=== PATIENT | female | born 2000 | race Caucasian/White ===

== ENCOUNTER 2024-11-03 14:32 | Emergency (ER) | payer OTHER, SELFPAY ==
[2024-11-03 14:37] VITALS: BP 117/99; PULSE 110; TEMP 37.1; O2SAT 100; BMI 22.3
--- NOTE | 2024-11-03 15:34 | XR_ITS ---
The [address] [address] Patient Name: JAROCHO SHOOK MRN: [id number] date: 2000 Sex: F Assigned Patient Location: ED.MAIN Current Patient Location: Accession/Order Number: [id number] Exam Date: 11/03/2024 15:45 Report Date: 11/03/2024 17:52 At the request of: NINA SWANSON Procedure: XR lumbar spine 2-3V Exam: Radiographs: XR lumbar spine 2-3V Reason for exam: low back pain Comparison: None XR/XR lumbar spine 2-3V IMPRESSION: Unremarkable lumbar spine radiographs. Electronically authenticated by: NICOLE DUNBAR Date: 11/03/2024 17:52
[2024-11-03 15:37] LABS: Bilirubin Urine NEGATIVE (NEGATIVE); Blood Urine MODERATE (NEGATIVE); Clarity Urine CLEAR (CLEAR); Color Urine LT. YELLOW (YELLOW); Glucose Urine UA NEGATIVE (NEGATIVE); Ketones Urine NEGATIVE (NEGATIVE); Leukocyte Esterase Urine TRACE (NEGATIVE); Nitrite Urine NEGATIVE (NEGATIVE); Protein Urine NEGATIVE (NEG/TRACE); Specific Gravity Urine 1.015 (1.005-1.025); Urobilinogen Urine 0.2 EU/dL (0.2-1.0); pH Urine 7.5 (5.0-9.0)
--- NOTE | 2024-11-03 15:37 | ED_ITS ---
Documented by User: SHANTA Mahajan 11/03/24 16:32 HPI HPI - Back Pain/Injury General Chief Complaint: Back Pain/Injury Stated Complaint: BACK PAIN Time Seen by Provider: 11/03/24 15:18 Source: patient Mode of arrival: walk-in History of Present Illness HPI Narrative: Patient is a 24-year-old female presents to the ER for evaluation of acute on chronic low back pain. Patient states she deals with chronic low back pain for several years believes she had a injury moving a patient sometime ago. Patient states last night she was in bed and was twisting her hips and noticed sudden onset increased pain in the lower back patient describes bolts of discomfort going into her thighs and upper back symptoms have since subsided and are localized to the lower back region occasional pain into the anterior thighs. She denies any current bowel or bladder numbness or saddle paresthesias she denies any bowel or bladder incontinence. Patient states she can sit with her legs hyperflexed at the hip joint and can get numbness in the vaginal area if she sits like this for an extended period of time. She denies any perirectal numbness or tingling. Patient patient states she has also had episodic numbness in the left shoulder blade region with no correlation. She denies any radicular symptoms down her legs at baseline but notes chronic discomfort in the lower back she has pain with flexion reaching her knees and extension. Currently moderate but still able to ambulate without much difficulty. 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 MD elicited complaint: Reports back pain; Denies back injury or fall Pertinent past history: Reports prior back pain Onset (ago): day(s) Timing: Reports improved Severity: moderate Similar Symptoms Previously: Yes Quality: Reports sharp, dull, aching and spasming; Denies burning Location: Reports lumbar spine Radiation: Reports none (denies radicular symptoms) Context: turning/twisting Treatments prior to arrival: NSAIDS (motrin at noon) Related Data Previous Rx's ?Medication ?Instructions ?Recorded cyclobenzaprine 10 mg tablet 10 mg PO BEDTIME PRN muscle spasm 11/03/24 7 days #7 tabs prednisone 20 mg tablet 40 mg (2 x 20 mg) PO DAILY 5 days 11/03/24 #10 tabs Allergies Allergy/AdvReac Type Severity Reaction Status Date / Time No Known Drug Allergies Allergy Verified 11/03/24 14:41 Opioid HPI Opioid Management Most Recent Opioid Data: Last Pain Scale 6 11/03/24 15:59 11/03/24 Last MAR Pain Assessment 11/03/24 15:59 Review of Systems ROS Constitutional Denies: fever or chills Eyes Denies: change in vision Ears, nose, mouth, and throat Denies: throat pain Cardiovascular Denies: chest pain or palpitations Respiratory Denies: shortness of breath or cough Gastrointestinal Denies: abdominal pain Genitourinary Denies: painful urination Musculoskeletal Reports: back pain; Denies: neck pain, extremity pain or extremity swelling Integumentary/Breast Denies: rash Neurological Denies: headache or numbness in extremities Psychiatric Denies: anxiety or mood swings Endocrine Denies: excessive urination Hematologic/Lymphatic Denies: easy bruising PFSH PFSH Social History Little interest or pleasure in doing things: not at all Feeling down, depressed, or hopeless: not at all Exam Narrative Exam Narrative: Vital Signs reviewed and nurse's notes reviewed. The patient is not hypoxic. General: Alert, no acute distress, patient resting comfortably Skin: warm, intact, no pallor noted, no rash Head: Normocephalic, atraumatic Eye: Normal conjunctiva, EOMI Respiratory: No acute distress Abdomen: Normal bowel sounds, soft, nontender, no masses detected. No rebound, guarding, or rigidity noted. No midline pulsatile mass. Back: inspection of the back shows no obvious deformity, no swelling, no ecchymosis, contusion, abrasion, swelling, erythema, fluctuance or induration. No step offs or crepitus noted. No CVA tenderness noted bilaterally. Tenderness not palpable to the paravertebral lumbar region but this is the location of her pain. No midline bony tenderness. Straight leg raise on left is negative. Back pain is present with tight hamstrings noted Straight leg raise on right is negative. Musculoskeletal: No deformity noted to bilateral lower extremities. no cyanosis or mottling noted. normal pulses at DP and PT 2+ bilaterally and symmetrically. Normal 5/5 strength at ankles with dorsiflexion and plantar flexion. Patient is able to ambulate. Normal sensation noted to the bilateral lower extremities. Neurological: alert and oriented x4, normal sensory and motor observed. DTR 2+ at patellar and achilles bilaterally. Patient denies any paresthesias at this time. Psychiatric: Cooperative Constitutional Vital Signs, click to edit/add: Last Vital Signs Temp 98.8 F 11/03/24 14:37 Pulse 110 H 11/03/24 14:37 Resp 18 11/03/24 14:37 BP 117/99 H 11/03/24 14:37 Pulse Ox 100 11/03/24 14:37 O2 Del Method Room Air 11/03/24 14:37 Course Vital Signs Vital signs: Vital Signs Temperature 98.8 F 11/03/24 14:37 Pulse Rate 110 H 11/03/24 14:37 Respiratory Rate 18 11/03/24 14:37 Blood Pressure 117/99 H 11/03/24 14:37 Pulse Oximetry 100 11/03/24 14:37 Oxygen Delivery Method Room Air 11/03/24 14:37 Temperature 98.8 F 11/03/24 14:37 Pulse Rate 110 H 11/03/24 14:37 Respiratory Rate 18 11/03/24 14:37 Blood Pressure 117/99 H 11/03/24 14:37 Pulse Oximetry 100 11/03/24 14:37 Oxygen Delivery Method Room Air 11/03/24 14:37 MDM - Back Pain/Injury MDM Narrative Medical decision making narrative: Patient presents with acute on chronic low back pain. She has not had x-rays in the past we discussed the need for follow-up to PCP and referral to physical therapy given the chronicity of her symptoms. We will place her on a prednisone taper and muscle relaxant. She is to be off work today and likely tomorrow pending improvement. We discussed gentle stretching. Patient will return to the ER with any red flag symptoms such as numbness or tingling in the bowel or bladder area saddle paraesthesias bowel or bladder incontinence. Patient reevaluated she is without any current urinary symptoms urine sample appears contaminated will await culture. Before treatment with antibiotics. Patient be placed on a steroid and muscle relaxant she is to use the muscle relaxant only at bedtime. Note for work also provided she is not to drive with the muscle relaxant. The patient was noted to be grossly neurologically intact. The patient was treated with adequate analgesia here in the emergency department. The patient vital signs were reviewed in the patient had no neurologic deficit noted. Due to the nature of the patient's history of present illness xrays were discussed. The patient is to followup in the next 3-5 days for repeat evaluation or to return to the emergency department if symptoms worsen or new symptoms develop. The patient will be discharged home with adequate analgesia. The patient has no other questions or concerns at this time. Lab Data Labs: Lab Results 11/03/24 Range/Units 15:25 Urine Color Lt. yellow (YELLOW) Urine Clarity Clear (CLEAR) Urine pH 7.5 (5.0-9.0) Ur Specific [employer] 1.015 (1.005-1.025) Urine Protein Negative (NEG/TRACE) mg/dL Urine Glucose (UA) Negative (NEGATIVE) mg/dL Urine Ketones Negative (NEGATIVE) mg/dL Urine Occult Blood Moderate A (NEGATIVE) Urine Nitrite Negative (NEGATIVE) Urine Bilirubin Negative (NEGATIVE) Urine Urobilinogen 0.2 (0.2-1.0) EU/dL Ur Leukocyte Esterase Trace A (NEGATIVE) Urine RBC 0-2 (0-2) #/HPF Urine WBC 2-5 A (NONE SEEN) #/HPF Ur Squamous Epith Cells Many A (NONE/RARE) #/LPF Urine Crystals None seen (None Seen) #/HPF Urine Bacteria Moderate A (NONE SEEN) #/HPF Urine Casts None seen (NONE SEEN) #/LPF Urine Mucus Small A (NONE SEEN) Ur Culture Indicated? Yes Urine HCG, Qual Negative (NEGATIVE) Discharge Plan Discharge Chief Complaint: Back Pain/Injury Clinical Impression: Low back pain Patient Disposition: Home, Self-Care Time of Disposition Decision: 16:29 Condition: Good Prescriptions / Home Meds: New prednisone 20 mg tablet 40 mg PO DAILY 5 Days Qty: 10 0RF cyclobenzaprine 10 mg tablet 10 mg PO BEDTIME PRN (Reason: muscle spasm) 7 Days Qty: 7 0RF Print Language: Mohawk Instructions: Acute Low Back Pain (ED) Additional Instructions: Contact your PCP office on Tuesday to discuss physical therapy referral recommend Tylenol for pain with steroid do not take Motrin or other NSAIDs. Referrals: IDA GERMAN [Primary Care Provider] - As soon as possible Discharge Date/Time: 11/03/24 16:34 Documented by User: Dank Rojas MD 11/03/24 19:35 HPI HPI - Back Pain/Injury General Chief Complaint: Back Pain/Injury Stated Complaint: BACK PAIN Time Seen by Provider: 11/03/24 15:18 Related Data Previous Rx's ?Medication ?Instructions ?Recorded cyclobenzaprine 10 mg tablet 10 mg PO BEDTIME PRN muscle spasm 11/03/24 7 days #7 tabs prednisone 20 mg tablet 40 mg (2 x 20 mg) PO DAILY 5 days 11/03/24 #10 tabs Allergies Allergy/AdvReac Type Severity Reaction Status Date / Time No Known Drug Allergies Allergy Verified 11/03/24 14:41 Opioid HPI Opioid Management Most Recent Opioid Data: Last Pain Scale 6 11/03/24 15:59 11/03/24 Last MAR Pain Assessment 11/03/24 15:59 PFSH PFSH Social History Little interest or pleasure in doing things: not at all Feeling down, depressed, or hopeless: not at all Exam Constitutional Vital Signs, click to edit/add: Last Vital Signs Temp 98.8 F 11/03/24 14:37 Pulse 110 H 11/03/24 14:37 Resp 18 11/03/24 14:37 BP 117/99 H 11/03/24 14:37 Pulse Ox 100 11/03/24 14:37 O2 Del Method Room Air 11/03/24 14:37 Course Vital Signs Vital signs: Vital Signs Temperature 98.8 F 11/03/24 14:37 Pulse Rate 110 H 11/03/24 14:37 Respiratory Rate 18 11/03/24 14:37 Blood Pressure 117/99 H 11/03/24 14:37 Pulse Oximetry 100 11/03/24 14:37 Oxygen Delivery Method Room Air 11/03/24 14:37 Temperature 98.8 F 11/03/24 14:37 Pulse Rate 110 H 11/03/24 14:37 Respiratory Rate 18 11/03/24 14:37 Blood Pressure 117/99 H 11/03/24 14:37 Pulse Oximetry 100 11/03/24 14:37 Oxygen Delivery Method Room Air 11/03/24 14:37 MDM - Back Pain/Injury MDM Narrative Medical decision making narrative: Patient presents with acute on chronic low back pain. She has not had x-rays in the past we discussed the need for follow-up to PCP and referral to physical therapy given the chronicity of her symptoms. We will place her on a prednisone taper and muscle relaxant. She is to be off work today and likely tomorrow pending improvement. We discussed gentle stretching. Patient will return to the ER with any red flag symptoms such as numbness or tingling in the bowel or bladder area saddle paraesthesias bowel or bladder incontinence. Patient reevaluated she is without any current urinary symptoms urine sample appears contaminated will await culture. Before treatment with antibiotics. Patient be placed on a steroid and muscle relaxant she is to use the muscle relaxant only at bedtime. Note for work also provided she is not to drive with the muscle relaxant. The patient was noted to be grossly neurologically intact. The patient was treated with adequate analgesia here in the emergency department. The patient vital signs were reviewed in the patient had no neurologic deficit noted. Due to the nature of the patient's history of present illness xrays were discussed. The patient is to followup in the next 3-5 days for repeat evaluation or to return to the emergency department if symptoms worsen or new symptoms develop. The patient will be discharged home with adequate analgesia. The patient has no other questions or concerns at this time. I, Dr Rojas, have reviewed the above progress note and course of action in the ER; agree with the above. I have personally gone over history and physical, and discussed disposition and treatment plan with the patient. Lab Data Labs: Lab Results 11/03/24 Range/Units 15:25 Urine Color Lt. yellow (YELLOW) Urine Clarity Clear (CLEAR) Urine pH 7.5 (5.0-9.0) Ur Specific [employer] 1.015 (1.005-1.025) Urine Protein Negative (NEG/TRACE) mg/dL Urine Glucose (UA) Negative (NEGATIVE) mg/dL Urine Ketones Negative (NEGATIVE) mg/dL Urine Occult Blood Moderate A (NEGATIVE) Urine Nitrite Negative (NEGATIVE) Urine Bilirubin Negative (NEGATIVE) Urine Urobilinogen 0.2 (0.2-1.0) EU/dL Ur Leukocyte Esterase Trace A (NEGATIVE) Urine RBC 0-2 (0-2) #/HPF Urine WBC 2-5 A (NONE SEEN) #/HPF Ur Squamous Epith Cells Many A (NONE/RARE) #/LPF Urine Crystals None seen (None Seen) #/HPF Urine Bacteria Moderate A (NONE SEEN) #/HPF Urine Casts None seen (NONE SEEN) #/LPF Urine Mucus Small A (NONE SEEN) Ur Culture Indicated? Yes Urine HCG, Qual Negative (NEGATIVE) Discharge Plan Discharge Chief Complaint: Back Pain/Injury Clinical Impression: Low back pain Patient Disposition: Home, Self-Care Time of Disposition Decision: 16:29 Condition: Good Prescriptions / Home Meds: New prednisone 20 mg tablet 40 mg PO DAILY 5 Days Qty: 10 0RF cyclobenzaprine 10 mg tablet 10 mg PO BEDTIME PRN (Reason: muscle spasm) 7 Days Qty: 7 0RF Print Language: Mohawk Instructions: Acute Low Back Pain (ED) Additional Instructions: Contact your PCP office on Tuesday to discuss physical therapy referral recommend Tylenol for pain with steroid do not take Motrin or other NSAIDs. Referrals: IDA GERMAN [Primary Care Provider] - As soon as possible Discharge Date/Time: 11/03/24 16:34
[2024-11-03 15:41] LABS: HCG Qualitative Urine* NEGATIVE (NEGATIVE); Internal Control Within Normal Limits; Urine Microscopic Indicated YES
[2024-11-03 15:44] LABS: Bacteria Urine MODERATE #/HPF (NONE SEEN); Cast Seen? NONE SEEN #/LPF (NONE SEEN); Crystals Seen? None Seen #/HPF (None Seen); Mucus Urine SMALL (NONE SEEN); RBC Urine 0-2 #/HPF (0-2); Squamous Epithelial Cell Urine MANY #/LPF (NONE/RARE); Urine Culture Indicated YES
[2024-11-03] MEDS: ACETAMINOPHEN 500 MG TABLET 1000 MG PO (15:57)
[2024-11-03] MEDS: DIAZEPAM 2 MG TABLET PO (15:58)
[2024-11-03] MEDS: PREDNISONE 20 MG TABLET 40 MG PO (15:58)
[2024-11-03] MEDS: KETOROLAC TROMETHAMINE 60 MG/2 ML VIAL IM (15:59)
[2024-11-06 09:39] LABS: BOX Test Reference Lab FIRELANDS
== END 2024-11-03 16:34 | disposition home or self-care (01) ==
PROVIDERS: Personal Emergency Response Attendant; Emergency Provider Emergency Medicine; Family Provider Family Medicine; PCP Family Medicine
DX: M54.50 Low back pain, unspecified (principal); G89.29 Other chronic pain
CPT/HCPCS: 36415; 72100; 81001; 84703; 87086; 96372; 99285; J1885; J7512

== ENCOUNTER 2025-05-09 12:30 | Emergency (ER) | payer OTHER, SELFPAY ==
[2025-05-09] VITALS (9 sets, daily range): BP systolic 107–128; BP diastolic 80–89; PULSE 86–135; TEMP 37; O2SAT 99–100; BMI 23.7
--- OUTSIDE RECORDS SUMMARY | 2025-05-09 12:38 | XMS_ITS | Encounter Summary ---
Author Organization [facility] Address [address] [place] [address] Care Team Providers Care Recycling Coordinator Name Role Phone Fatimah Aguilar MD Primary Care Provider [phone] Encounter Details Date Type Department Care Team (Late st Contact Info) Description 11/06/2024 Orders Only [facility] [address] [place] [address] Unallocated, [facility] Provider, [address] [place] [address] Social History Tobacco Use Types Packs/Day Years Used Date Smoking Tobacco: Never Smokeless Tobacco: Never Alcohol Use Standard Drinks/Week Comments Not Currently 0 (1 standard drink = 0.6 oz pur e alcohol) Comments Unknown Sex and Gender Information Value Date Recorded Sex Assigned at Not on file Legal Sex Female 7:13 PM EDT Gender Identity Not on file Sexual Orientation Not on file documented as of this encounter Plan of Treatment Not on file documented as of this encounter Procedures Procedure Name Priority Date/Time Associated Diagnosis Comments URINE CULTURE Routine 11/06/2024 10:39 AM EST URINE CULTURE Routine 11/06/2024 10:13 AM EST XR LUMBAR SPINE 2-3 VIEWS Routine 11/06/2024 9:44 AM EST documented in this encounter Results * URINE CULTURE (11/06/2024 10:39 AM EST) us [facility] Provider Unallocated LAB BLOOD ORDERABLE S Final Result * URINE CULTURE (11/06/2024 10:13 AM EST) us [facility] Provider Unallocated MD LAB BLOOD ORDERABLE S Final Result * XR lumbar spine 2 or 3 views (11/06/2024 9:44 AM EST) Anatomical Region Laterality Modality Spine, L-spine Radiographic [place] ging us [facility] Provider Unallocated IMG XR PROCEDURES F inal Result documented in this encounter Visit Diagnoses Not on filedocumented in this encounter Care Teams Recycling Coordinator Relationship Specialty Start Date End Date Fatimah Aguilar MD [address] [place] [address] PCP - General Family Medicine 03/15/23 documented as of this encounter
--- OUTSIDE RECORDS SUMMARY | 2025-05-09 12:38 | XMS_ITS | Clinical Summary ---
Author Organization [facility] Address [id number] [address] [place] [address] Care Team Providers Care Javascript Front End Developer Name Role Phone Fatimah Aguilar MD Primary Care Provider [phone] Allergies No known active allergies Medications etonogestreL (NEXPLANON) 68 mg implant See Admin Instructions . Active PARoxetine (PAXIL) 20 mg tablet 1 tablet in the morning Active Social History Tobacco Use Types Packs/Day Years Used Date Smoking Tobacco: Never Assessed Comments No Sex and Gender Information Value Date Recorded Sex Assigned at Not on file Legal Sex Female 7:33 PM EDT Gender Identity Not on file Sexual Orientation Not on file Last Filed Vital Signs Vital Sign Reading Time Taken Comments Blood Pressure 114/78 03/12/2022 10:00 PM EDT Pulse 72 03/12/2022 10:00 PM EDT Temperature 36.6 C (97.8 F) 03/12/2022 7:50 PM EDT Respiratory Rate 17 03/12/2022 10:0 0 PM EDT Oxygen Saturation 97% 03/12/2022 10: 00 PM EDT Inhaled Oxygen Concentration - - Weight 56.2 kg (123 lb 14.4 oz) 03/12/2022 7:50 PM EDT Height - - Body Mass Index - - Plan of Treatment Health Maintenance Due Date Last Done Comments Depression Screening 2013 Tobacco Screening 2013 Adult BMI Screening 2019 Pap Smear 2022 DTaP,Tdap and Td Vaccines (7 - Td or Tdap) 05/31/2024 05/31/2014, 06/08/2007, 09/26/2002, Additional history exists Influenza Vaccine 07/08/2025 09/12/2018 Medical Devices Not on file Insurance [employer] Care Teams Javascript Front End Developer Relationship Specialty Start Date End Date Fatimah Aguilar MD [facility] [place] [address] PCP - General Family Medicine 03/12/22
--- OUTSIDE RECORDS SUMMARY | 2025-05-09 12:38 | XMS_ITS | Encounter Summary ---
Author Organization [facility] Address [address] [place] [address] Care Team Providers Care Industrial Automation Specialist Name Role Phone Fatimah Aguilar MD Primary Care Provider [phone] Encounter Details Date Type Department Care Team (Late st Contact Info) Description 11/05/2024 Orders Only [facility] [address] [place] [address] Unallocated, [facility] Provider, [address] [place] [address] Social History Tobacco Use Types Packs/Day Years [...] Date/Time Associated Diagnosis Comments URINE CULTURE Routine 11/05/2024 12:59 PM EST documented in this encounter Results * URINE CULTURE (11/05/2024 12:59 PM EST) us [facility] Provider Unallocated LAB BLOOD ORDERABLE S Final Result documented in this encounter Visit Diagnoses Not on filedocumented in this encounter Care Teams Industrial Automation Specialist Relationship Specialty Start Date End Date Fatimah Aguilar MD [address] [address] PCP - General Family Medicine 03/15/23 documented as of this encounter
--- OUTSIDE RECORDS SUMMARY | 2025-05-09 12:38 | XMS_ITS | Clinical Summary ---
Author Organization [facility] Address [address] [place] [address] Care Team Providers Care Medical Staff Specialist Name Role Phone Fatimah Aguilar MD Primary Care Provider [phone] Allergies No known active allergies Medications etonogestrel-elut ing (Nexplanon) 68 mg contraceptive implant 1 each by Implant route 1 (one) time. Active PARoxetine (Paxil) 20 MG tabletIndications :Panic attack Take 1 tablet (20 mg) by mouth in the morning. 90 tablet 3 4 Active fluticasone (Flonase) 50 MCG/ACT nasal sprayIndications: Acute non-recurrent maxillary sinusitis Administer 1-2 sprays into each nostril Daily Shake gently. Before first use, prime pump. After use, clean tip and replace cap. 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 Patellofemoral disorders, right knee 09/26/2023 Vaginal odor 09/26/2023 Immunizations Immunization Administration Dates Next Due DTaP 09/26/2002 DTaP, Unspecified 06/08/2007, 2,2001,2000 Hib (PRP-T) 09/26/2002 Hib / Hep B 02/21/2002,2001,2001 IPV 06/08/2007, 2,2001,2000 Influenza, live, intranasal, quadrivalent 09/12/2018 MMR 06/08/2007,2002 Tdap 05/31/2014 Varicella 06/08/2007,2002 Family History Relation Name Status Comments Father Alive Mother Alive Social History Tobacco Use Types Packs/Day Years Used Date Smoking Tobacco: Never Smokeless Tobacco: Never Tobacco Cessation:Counseling Given: Not Answered Alcohol Use Standard Drinks/Week Comments Not Currently 0 (1 standard drink = 0.6 oz pur e alcohol) Comments Unknown Sex and Gender Information Value Date Recorded Sex Assigned at Not on file Legal Sex Female 7:13 PM EDT Gender Identity Not on file Sexual Orientation Not on file Last Filed Vital Signs Vital Sign Reading Time Taken Comments Blood Pressure 108/76 09/05/2024 11:14 AM EDT Pulse 114 09/05/2024 11:14 AM EDT Temperature 37.1 C (98.7 F) 09/05/2024 11:14 AM EDT Respiratory Rate 16 09/05/2024 11:14 AM EDT Oxygen Saturation 97% 09/05/2024 11:14 AM EDT Inhaled Oxygen Concentration - - Weight 60.5 kg (133 lb 6.4 oz) 09/05/2024 11:14 AM EDT Height 162.6 cm (5' 4 ) 09/05/2024 11:14 AM EDT Body Mass Index 22.9 09/05/2024 11:14 AM EDT Plan of Treatment Health Maintenance Due Date Last Done Comments Influenza Vaccine (#1) 2025 09/12/2018 Insurance [facility] [address] [address] [place] [address] Care Teams Medical Staff Specialist Relationship Specialty Start Date End Date Fatimah Aguilar MD [address] [facility] [address] [place] [address] PCP - General Family Medicine 03/15/23
--- NOTE | 2025-05-09 12:43 | ED_ITS ---
HPI HPI - General Adult General Chief complaint: Abdominal Pain Stated complaint: ABDOMINAL PAIN Time Seen by Provider: 05/09/25 12:36 Source: patient Mode of arrival: walk-in History of Present Illness HPI narrative: 24-year-old female presents to the emergency department for abdominal pain. She describes a burning feeling throughout her mid abdomen for the last 6 or 7 days. No constipation or diarrhea and she has not had blood in her stool. No nausea vomiting and she has not had a fever or trauma. Related Data Home Medications ?Medication ?Instructions ?Recorded ?Confirmed No Known Home Medications 05/09/25 07/0 01/29 Allergies Allergy/AdvReac Type Severity Reaction Status Date / Time No Known Drug Allergies Allergy Verified 11/03/24 14:41 Opioid HPI Opioid Management Most Recent Opioid Data: Last Pain Scale 6 11/03/24, 15:59 Review of Systems ROS Narrative A ten point review of systems is negative except as noted above. PFSH PFSH Social History Little interest or pleasure in doing things: not at all Feeling down, depressed, or hopeless: not at all Exam Narrative Exam Narrative: Nurses note and vital signs reviewed and patient is not hypoxic. General: The patient appears well and in no apparent distress. Patient is resting comfortably on cart. Skin: Warm, dry, no pallor noted. There is no rash noted. Head: Normocephalic, atraumatic Eye: Normal conjunctiva, no drainage Ears, Nose, Mouth, and Throat: oral mucosa is moist. Nares patent. Cardiovascular: Regular Rate and Rhythm, tach, Respiratory: Patient is in no distress, no accessory muscle use, lungs are clear to auscultation, no wheezing, rales or rhonchi Back: non-tender GI: Normal bowel sounds, no tenderness to palpation, no masses appreciated. No rebound, guarding, or rigidity noted. Musculoskeletal: The patient has no evidence of calf tenderness, no pitting edema, symmetrical pulses noted bilaterally Neurological: A&O, normal speech Psychiatric: Cooperative Constitutional Vital Signs, click to edit/add: Last Vital Signs Temp 98.6 F 05/09/25 12:33 Pulse 135 H 05/09/25 12:33 Resp 18 05/09/25 12:33 BP 128/89 05/09/25 12:33 Pulse Ox 100 05/09/25 13:30 O2 Del Method Room Air 05/09/25 12:33 Course Vital Signs Vital signs: Vital Signs Temperature 98.6 F 05/09/25 12:33 Pulse Rate 135 H 05/09/25 12:33 Respiratory Rate 18 05/09/25 12:33 Blood Pressure 128/89 05/09/25 12:33 Pulse Oximetry 100 05/09/25 12:33 Oxygen Delivery Method Room Air 05/09/25 12:33 Temperature 98.6 F 05/09/25 12:33 Pulse Rate 135 H 05/09/25 12:33 Respiratory Rate 18 05/09/25 12:33 Blood Pressure 128/89 05/09/25 12:33 Pulse Oximetry 100 05/09/25 13:30 Oxygen Delivery Method Room Air 05/09/25 12:33 Medical Decision Making MDM Narrative Medical decision making narrative: Laboratory analysis is normal. Heart rate has come down appropriately. She had eaten some spicy foods before this started and she was recommended Tums and Nexium. Treatment diagnosis and follow-up were discussed with the patient. I do not feel that a CAT scan is indicated. Differential Diagnosis Differential Diagnosis: Gastritis, pancreatitis, UTI, constipation, gastroenteritis Lab Data Lab results reviewed: Yes I reviewed the patient's lab results Labs: Lab Results 05/09/25 05/09/25 Range/Units 12:50 12:55 WBC 7.8 (4.0-11.0) 10^3/uL RBC 5.07 (4.20-5.40) 10^6/uL Hgb 15.5 (12.0-16.0) g/dL Hct 45.0 (36.0-48.0) % MCV 88.8 (81.0-99.0) fL MCH 30.6 (26.7-34.0) pg MCHC 34.4 (29.9-35.2) g/dL RDW 13.1 (11.0-15.0) % Plt Count 328 (150-450) 10^3/uL MPV 9.9 (9.5-13.5) fL Neut % (Auto) 64.5 (43.0-75.0) % Lymph % (Auto) 26.8 (20.5-60.0) % Brooks % (Auto) 6.3 (1.7-12.0) % Eos % (Auto) 1.3 (0.9-7.0) % Baso % (Auto) 0.8 (0.2-2.0) % Neut # (Auto) 5.0 (1.4-6.5) 10^3/uL Lymph # (Auto) 2.1 (1.2-3.8) 10^3/uL Brooks # (Auto) 0.5 (0.3-0.8) 10^3/uL Eos # (Auto) 0.1 (0.0-0.7) 10^3/uL Baso # (Auto) 0.1 (0.0-0.1) 10^3/uL Abs Immat Gran (auto) 0.02 (0.00-0.03) 10^3/uL Imm/Tot Granulo (auto) 0.3 (0.0-0.5) % Sodium 143 (136-145) mmol/L Potassium 3.5 (3.5-5.1) mmol/L Chloride 103 (98-107) mmol/L Carbon Dioxide 26.7 (21.0-32.0) mmol/L Anion Gap 16.8 BUN 12.0 (7.0-18.0) mg/dL Creatinine 0.72 (0.55-1.02) mg/dL Est GFR ( Amer) >60 (>=60 mL/min/1.73m^2) Est GFR (Non-Af Amer) >60 (>=60 mL/min/1.73m^2) BUN/Creatinine Ratio 16.7 Glucose 93 (74-106) mg/dL Calcium 9.3 (8.5-10.1) mg/dL Total Bilirubin 1.2 H (0.2-1.0) mg/dL Direct Bilirubin 0.2 (0.0-0.2) mg/dL AST 16 (15-37) U/L ALT 15 (14-59) U/L Alkaline Phosphatase 62 (46-116) U/L Total Protein 8.2 (6.4-8.2) g/dL Albumin 4.7 (3.4-5.0) g/dL Globulin 3.5 g/dL Albumin/Globulin Ratio 1.3 Amylase 55 (25-115) U/L Lipase 36.0 (16.0-77.0) U/L Serum HCG, Qual Negative (NEGATIVE) Urine Color Yellow (YELLOW) Urine Clarity Clear (CLEAR) Urine pH 6.0 (5.0-9.0) Ur Specific [place] 1.020 (1.005-1.025) Urine Protein Trace (NEG/TRACE) mg/dL Urine Glucose (UA) Negative (NEGATIVE) mg/dL Urine Ketones 15 A (NEGATIVE) mg/dL Urine Occult Blood Large A (NEGATIVE) Urine Nitrite Negative (NEGATIVE) Urine Bilirubin Negative (NEGATIVE) Urine Urobilinogen 0.2 (0.2-1.0) EU/dL Ur Leukocyte Esterase Small A (NEGATIVE) Urine RBC 0-2 (0-2) #/HPF Urine WBC 2-5 A (NONE SEEN) #/HPF Ur Squamous Epith Cells Many A (NONE/RARE) #/LPF Ur Transition Epith Cell Rare A (NONE SEEN) #/LPF Urine Crystals None seen (None Seen) #/HPF Urine Bacteria Moderate A (NONE SEEN) #/HPF Urine Casts None seen (NONE SEEN) #/LPF Urine Mucus Moderate A (NONE SEEN) Ur Culture Indicated? Yes-[facility] [place] Discharge Plan Discharge Chief Complaint: Abdominal Pain Clinical Impression: Abdominal pain Patient Disposition: Home, Self-Care Time of Disposition Decision: 13:41 Condition: Good Mode of Transportation: Private Vehicle Prescriptions / Home Meds: No Action No Known Home Medications Print Language: Palestinian Instructions: Abdominal Pain (ED) Referrals: IDA GERMAN [Primary Care Provider, Family Practice] - 1 week
[2025-05-09 13:05] LABS: Hematocrit 45.0 % (36.0-48.0); Hemoglobin 15.5 g/dL (12.0-16.0); Immature Granulocytes Abs Auto 0.02 10^3/uL (0.00-0.03); Immature Granulocytes Pct Auto 0.3 % (0.0-0.5); Lymphocytes Absolute Auto 2.1 10^3/uL (1.2-3.8); Mean Corpuscular HGB Conc 34.4 g/dL (29.9-35.2); Mean Corpuscular Hemoglobin 30.6 pg (26.7-34.0); Mean Corpuscular Volume 88.8 fL (81.0-99.0); Platelet Count 328 10^3/uL (150-450); Red Blood Count 5.07 10^6/uL (4.20-5.40); White Blood Count 7.8 10^3/uL (4.0-11.0)
[2025-05-09 13:06] LABS: Glucose Urine UA NEGATIVE (NEGATIVE)
[2025-05-09] MEDS: 0.9 % SODIUM CHLORIDE 1,000 ML 1000 ML IV (13:09)
[2025-05-09 13:22] LABS: Cast Seen? NONE SEEN #/LPF (NONE SEEN); Crystals Seen? None Seen #/HPF (None Seen); Urine Culture Indicated YES-FRMC
[2025-05-09 13:27] LABS: Alanine Aminotransferase 15 U/L (14-59); Albumin Globulin Ratio 1.3; Albumin Level 4.7 g/dL (3.4-5.0); Alkaline Phosphatase 62 U/L (46-116); Amylase 55 U/L (25-115); Anion Gap 16.8; Aspartate Amino Transferase 16 U/L (15-37); Blood Urea Nitrogen 12.0 mg/dL (7.0-18.0); Calcium 9.3 mg/dL (8.5-10.1); Carbon Dioxide 26.7 mmol/L (21.0-32.0); Chloride 103 mmol/L (98-107); Estimated GFR (African America >60 (>=60 mL/min/1.73m^2); Estimated GFR (Non-African Ame >60 (>=60 mL/min/1.73m^2); Globulin 3.5 g/dL; Glucose 93 mg/dL (74-106); Lipase 36.0 U/L (16.0-77.0); Potassium 3.5 mmol/L (3.5-5.1); Sodium 143 mmol/L (136-145); Total Protein 8.2 g/dL (6.4-8.2)
== END 2025-05-09 13:58 | disposition home or self-care (01) ==
PROVIDERS: Emergency Provider Emergency Medicine; Family Provider Family Medicine; PCP Family Medicine
DX: R10.9 Unspecified abdominal pain (principal)
CPT/HCPCS: 36415; 80048; 80076; 81001; 82150; 83690; 84703; 85025; 87086; 99284